=== PATIENT | female | born 1940 | race Caucasian/White ===

== ENCOUNTER 2022-05-20 13:35 | Outpatient (CLI) | payer OTHER, SELFPAY | END 2022-05-20 13:36 | disposition home or self-care (01) | LOC: FRMREF 05-26 15:02 | PROVIDERS: PCP Physician Assistant Medical; Visit Provider Family Medicine | DX: R35.0 Frequency of micturition (principal) | CPT/HCPCS: 87086 ==

== ENCOUNTER 2023-02-24 13:29 | Outpatient (CLI) | payer OTHER, SELFPAY | END 2023-02-24 13:30 | disposition home or self-care (01) | PROVIDERS: PCP Physician Assistant Medical; Visit Provider Physician Assistant Medical | DX: I10 Essential (primary) hypertension (principal); E78.5 Hyperlipidemia, unspecified | CPT/HCPCS: 80053; 80061 ==

== ENCOUNTER 2024-08-28 09:48 | Outpatient (CLI) | payer OTHER, SELFPAY | END 2024-08-28 09:49 | disposition home or self-care (01) | LOC: NFLDREF 08-30 08:44 | PROVIDERS: PCP Physician Assistant Medical; Referring Provider Physician Assistant Medical; Visit Provider Physician Assistant Medical | DX: I10 Essential (primary) hypertension (principal); E78.2 Mixed hyperlipidemia; C54.1 Malignant neoplasm of endometrium; Z86.718 Personal history of other venous thrombosis and embolism | CPT/HCPCS: 80053; 80061; 84443 ==